=== PATIENT | female | born 1965 | race Caucasian/White ===

== ENCOUNTER 2018-01-11 12:52 | Emergency (ER) | payer SELFPAY ==
[~2018-01-11] VITALS: Ht 157.5 cm; Wt 65.9 kg
[2018-01-11 12:58] VITALS: BP 125/77
== END 2018-01-11 14:00 | disposition left against medical advice (07) ==
LOC: EMS 12:54
DX: R51 Headache (principal); Z53.21 Procedure and treatment not carried out due to patient leaving prior to being seen by health care provider

== ENCOUNTER 2018-01-11 18:20 | Inpatient (IN) | payer MEDICAID ==
[~2018-01-11] VITALS: Ht 154.9 cm; Wt 59.1 kg
[2018-01-11] MEDS ORDERED: LORazepam 2 MG TABLET PO ONE (19:00)
[2018-01-11] MEDS ORDERED: HALOPERIDOL 5 MG TABLET PO ONE (19:00)
[2018-01-11 19:13] LABS: BASOPHILS % (AUTO) 0.3 % (0.0-2.0); EOSINOPHILS % (AUTO) 6.3 % (1.0-6.0); HEMATOCRIT 33.6 % (36-46); HEMOGLOBIN 11.5 g/dL (12.0-16.0); LYMPHOCYTES # (AUTO) 1.3 K/uL (1.0-4.8); LYMPHOCYTES % (AUTO) 28.7 % (22.0-44.0); MEAN CORPUSCULAR HEMOGLOBIN 32.7 pg (26.0-34.0); MEAN CORPUSCULAR HGB CONC 34.2 G/dL (31.0-37.0); MEAN CORPUSCULAR VOLUME 96 fL (80-100); MONOCYTES # (AUTO) 0.2 K/uL (0.1-1.0); MONOCYTES % (AUTO) 5.1 % (2.0-9.0); NEUTROPHILS # (AUTO) 2.7 K/uL (1.8-7.7); NEUTROPHILS % (AUTO) 59.6 % (40.0-70.0); PLATELET COUNT (AUTO) 248 K/uL (150-450); RED BLOOD CELL COUNT(AUTO) 3.52 MIL/uL (4.00-5.20); RED CELL DISTRIBUTION WIDTH 13.1 % (11.5-14.5)
[2018-01-11] MEDS ORDERED: LORazepam 2 MG/ML VIAL IM ONE (19:15)
[2018-01-11] MEDS ORDERED: DiphenhydrAMINE HCL 50 MG/ML VIAL IM ONE (19:15)
[2018-01-11] MEDS ORDERED: HALOPERIDOL LACTATE 5 MG/ML VIAL IM ONE (19:15)
[2018-01-11 19:23] LABS: ANION GAP 5 mmol/L (8-16); CALCIUM, TOTAL 8.1 mg/dL (8.8-10.5); CARBON DIOXIDE 32 mmol/L (22-29); CHLORIDE 108 mmol/L (98-107); CREATININE 0.77 mg/dL (0.60-1.30); GLOMERULAR FILTR. RATE CALC > 60 mL/min (>60); GLUCOSE,RANDOM 127 mg/dL (70-110); POTASSIUM 3.4 mmol/L (3.5-5.1); SODIUM SERUM 145 mmol/L (136-145); UREA NITROGEN, BLOOD 12 mg/dL (7-18)
[2018-01-11 19:28] LABS: ALANINE AMINOTRANSFERASE 26 U/L (12-78); ALBUMIN 3.3 g/dL (3.4-5.0); ALKALINE PHOSPHATASE 68 U/L (46-116); ASPARTATE AMINOTRANSFERASE 16 U/L (15-37); BILIRUBIN,TOTAL 0.2 mg/dL (0.1-1.0); TOTAL PROTEIN, SERUM 6.2 g/dL (6.4-8.2)
[2018-01-11] MEDS ORDERED: ZOLPIDEM TARTRATE 10 MG TABLET PO PRN (20:00)
[2018-01-11] MEDS ORDERED: HALOPERIDOL 5 MG TABLET PO PRN (20:00)
[2018-01-11 20:24] LABS: AMPHET/METH SCREEN,URINE POSITIVE (NEGATIVE); BARBITURATE SCREEN, URINE NEGATIVE (NEGATIVE); BENZODIAZEPINES SCREEN,URINE NEGATIVE (NEGATIVE); CANNABINOID SCREEN,URINE POSITIVE (NEGATIVE); COCAINE SCREEN,URINE NEGATIVE (NEGATIVE); METHADONE SCREEN, URINE NEGATIVE (NEGATIVE); OPIATE SCREEN,URINE NEGATIVE (NEGATIVE); PHENCYCLIDINE SCREEN,URINE NEGATIVE (NEGATIVE)
[2018-01-11] MEDS ORDERED: OLANZapine 5 MG RAPDIS TABLET PO PRN (21:15)
[2018-01-11 22:21] VITALS: BP 100/60
[2018-01-11] MEDS ORDERED: POTASSIUM CHLORIDE 20 MEQ ER TABLET PO ONE (22:30)
[2018-01-12 06:24] VITALS: BP 104/62
[2018-01-12 08:36] LABS: ALANINE AMINOTRANSFERASE 23 U/L (12-78); ALBUMIN 3.1 g/dL (3.4-5.0); ALKALINE PHOSPHATASE 62 U/L (46-116); ANION GAP 7 mmol/L (8-16); ASPARTATE AMINOTRANSFERASE 25 U/L (15-37); BILIRUBIN,TOTAL 0.3 mg/dL (0.1-1.0); CALCIUM, TOTAL 8.3 mg/dL (8.8-10.5); CARBON DIOXIDE 27 mmol/L (22-29); CHLORIDE 108 mmol/L (98-107); CHOL/HDL RATIO 1.8 (3.9-5.7); CHOLESTEROL 135 mg/dL (131-200); GLOMERULAR FILTR. RATE CALC > 60 mL/min (>60); GLUCOSE,RANDOM 96 mg/dL (70-110); HDL CHOLESTEROL 76 mg/dL (40-60); LDL CHOL (CALC.) 52 mg/dL (0-130); POTASSIUM 3.9 mmol/L (3.5-5.1); SODIUM SERUM 142 mmol/L (136-145); THYROID STIMULATING HORMONE 3.42 uIU/mL (0.36-3.74); TOTAL PROTEIN, SERUM 5.4 g/dL (6.4-8.2); TRIGLYCERIDES 35 mg/dL (15-150); UREA NITROGEN, BLOOD 11 mg/dL (7-18)
[2018-01-12 09:33] VITALS: BP 100/56
[2018-01-12] MEDS ORDERED: HydrOXYzine PAMOATE 50 MG CAPSULE PO PRN (10:00)
[2018-01-12] MEDS ORDERED: TUBERCULIN, PURIFIED PROTEIN DERIVATIVE 5 TU/0.1 ML SYG ID ONE (10:00)
[2018-01-12] MEDS ORDERED: LOPERAMIDE HCL 2 MG CAPSULE PO PRN (10:00)
[2018-01-12] MEDS ORDERED: MAGNESIUM HYDROXIDE SUSPENSION 30 ML UDCUP PO PRN (10:00)
[2018-01-12] MEDS ORDERED: GuaiFENesin/D-METHORPHAN [SUGAR-FREE] 200-20MG/10 ML SYRUP UDCUP PO PRN (10:00)
[2018-01-12] MEDS ORDERED: PROMETHAZINE HCL 25 MG TABLET PO PRN (10:00)
[2018-01-12] MEDS ORDERED: ACETAMINOPHEN 325 MG TABLET PO PRN (10:00)
[2018-01-12] MEDS ORDERED: MAG HYDROX/AL HYDROX/SIMETH ES 30 ML SUSPENSION UDCUP PO PRN (10:00)
[2018-01-12 13:44] VITALS: BP 103/69
[2018-01-12 16:07] VITALS: BP 122/82
[2018-01-12] MEDS: THIAMINE HCL 100 MG TABLET PO SCH (16:49)
[2018-01-12] MEDS ORDERED: OLANZapine 5 MG RAPDIS TABLET PO SCH (21:00)
[2018-01-13 06:41] VITALS: BP 113/69
[2018-01-13] MEDS: NALTREXONE HCL 50 MG TABLET PO SCH (08:43)
[2018-01-13] MEDS: THIAMINE HCL 100 MG TABLET PO SCH ×2 (08:43→16:50)
[2018-01-13] MEDS: FOLIC ACID 1 MG TABLET PO SCH (08:43)
[2018-01-13] MEDS: MULTIVITAMINS WITH MINERALS, THERAPEUTIC TABLET PO SCH (08:43)
[2018-01-13] MEDS: LORazepam 2 MG TABLET PO PRN (12:02)
[2018-01-13 16:26] VITALS: BP 115/61
[2018-01-13] MEDS: OLANZapine 10 MG RAPDIS TABLET PO SCH (20:46)
[2018-01-14 08:34] VITALS: BP 115/62
[2018-01-14] MEDS: NALTREXONE HCL 50 MG TABLET PO SCH (09:21)
[2018-01-14] MEDS: FOLIC ACID 1 MG TABLET PO SCH (09:21)
[2018-01-14] MEDS: THIAMINE HCL 100 MG TABLET PO SCH ×2 (09:21→16:20)
[2018-01-14] MEDS: MULTIVITAMINS WITH MINERALS, THERAPEUTIC TABLET PO SCH (09:21)
[2018-01-14] MEDS: LORazepam 2 MG TABLET PO PRN ×2 (09:25→16:20)
[2018-01-14] MEDS ORDERED: NALT50TA PO (13:24)
[2018-01-14] MEDS ORDERED: OLAN10TA22 PO (13:24)
[2018-01-14] MEDS ORDERED: FLUO-191 PO (13:24)
[2018-01-14 16:23] VITALS: BP 109/66
[2018-01-14] MEDS: OLANZapine 10 MG RAPDIS TABLET PO SCH (20:51)
[2018-01-15 06:51] VITALS: BP 108/68
[2018-01-15] MEDS: FOLIC ACID 1 MG TABLET PO SCH (09:00)
[2018-01-15] MEDS: NALTREXONE HCL 50 MG TABLET PO SCH (09:00)
[2018-01-15] MEDS: THIAMINE HCL 100 MG TABLET PO SCH (09:00)
[2018-01-15] MEDS: MULTIVITAMINS WITH MINERALS, THERAPEUTIC TABLET PO SCH (09:00)
[2018-01-15] MEDS ORDERED: FLUoxetine HCL 20 MG CAPSULE PO SCH (09:00)
== END 2018-01-15 12:00 | disposition home or self-care (01) | DRG 750 ==
LOC: EMS 18:21 → B3A 20:47
PROVIDERS: ADMIT Psychiatry & Neurology Psychiatry; ATTEND Psychiatry & Neurology Psychiatry
DX: F20.0 Paranoid schizophrenia (principal); Z91.19 Patient's noncompliance with other medical treatment and regimen; F32.9 Major depressive disorder, single episode, unspecified; Z59.0 Homelessness; F15.10 Other stimulant abuse, uncomplicated; D64.9 Anemia, unspecified; F12.10 Cannabis abuse, uncomplicated; Z65.3 Problems related to other legal circumstances; F17.200 Nicotine dependence, unspecified, uncomplicated
CPT/HCPCS: 84439; 84443; 96372; 99291; G0480; J1200; J1630; J2060